=== PATIENT | female | born 1960 | race Caucasian/White ===

== ENCOUNTER → 2020-03-03 08:05 | Outpatient (CLI) | payer OTHER, SELFPAY ==
--- NOTE | 2020-03-03 | DI.MG.S_ITS ---
BILATERAL DIGITAL SCREENING MAMMOGRAM 3D/2D WITH CAD: 03/03/2020 CLINICAL: Routine screening. Comparison is made to exams dated: 08/19/2016 mammogram, 08/20/2017 mammogram, and 08/20/2018 mammogram - [facility]. The tissue of both breasts is predominantly fatty. Current study was also evaluated with a Computer Aided Detection (CAD) system. No significant masses, calcifications, or other findings are seen in either breast. There has been no significant interval change. IMPRESSION: NEGATIVE There is no mammographic evidence of malignancy. A 1 year screening mammogram is recommended. This exam was interpreted at Station ID: [id number]. NOTE: For mammograms, a report in lay terms will be sent to the patient. Approximately 15% of breast malignancies will not be visualized mammographically. In the management of a palpable breast mass, a negative mammogram must not discourage biopsy of a clinically suspicious lesion. Electronically Signed By: Tang john/trisha:03/05/2020 07:54:50 letter sent: Normal Exam ACR BI-RADS Category 1: Negative 3341F
== END ==
PROVIDERS: Referring Provider Registered Nurse Diabetes Educator; Visit Provider Registered Nurse Diabetes Educator
DX: Z12.31 Encounter for screening mammogram for malignant neoplasm of breast (principal)
CPT/HCPCS: 77063; 77067

== ENCOUNTER → 2021-03-16 08:55 | Outpatient (CLI) | payer OTHER, SELFPAY ==
--- NOTE | 2021-03-16 | DI.MG.S_ITS ---
BILATERAL DIGITAL SCREENING MAMMOGRAM 3D/2D WITH CAD: 03/16/2021 CLINICAL: Routine screening. Comparison is made to exams dated: 03/03/2020 mammogram - [facility], 08/20/2018 mammogram, and 08/20/2017 mammogram - [facility]. The tissue of both breasts is predominantly fatty. Current study was also evaluated with a Computer Aided Detection (CAD) system. No significant masses, calcifications, or other findings are seen in either breast. There has been no significant interval change. IMPRESSION: NEGATIVE There is no mammographic evidence of malignancy. A 1 year screening mammogram is recommended. This exam was interpreted at Station ID: [id number]. NOTE: For mammograms, a report in lay terms will be sent to the patient. Approximately 15% of breast malignancies will not be visualized mammographically. In the management of a palpable breast mass, a negative mammogram must not discourage biopsy of a clinically suspicious lesion. Electronically Signed By: Abdiaziz galvan/trisha:03/18/2021 08:21:32 letter sent: Normal Exam ACR BI-RADS Category 1: Negative 3341F
== END ==
PROVIDERS: Referring Provider Student in an Organized Health Care Education/Training Program; Visit Provider Student in an Organized Health Care Education/Training Program
DX: Z12.31 Encounter for screening mammogram for malignant neoplasm of breast (principal)
CPT/HCPCS: 77063; 77067

== ENCOUNTER 2024-05-30 12:14 | Emergency (ER) | payer OTHER, SELFPAY ==
[2024-05-30] VITALS (20 sets, daily range): BP systolic 116–158; BP diastolic 57–69; PULSE 59–84; RESP 12–25; TEMP 36.8–37.1; O2SAT 91–100; BMI 51.2
--- NOTE | 2024-05-30 12:56 | EKG_ITS ---
[facility] [address] [place] [address] Test Date: 2024-05-30 Pat Name: Yanni Taylor Department: [facility] Room: Gender: Female Electrical Engineering Director: MALLORIE : 1960 Requested By: Order Number: [id number] Reading MD: Eric Ocampo MD Measurements Intervals Counce Rate: 71 P: 48 SD: 184 QRS: -15 QRSD: 90 T: 15 QT: 418 QTc: 454 Interpretive Statements Normal sinus rhythm Minimal voltage criteria for LVH, may be normal variant ( R in aVL ) Electronically Signed On 05-30-2024 16:46:45 PST by Eric Ocampo MD
[2024-05-30 13:30] LABS: Add Manual Diff / Slide Review NO; Basophils Absolute Auto 100 /uL (0-100); Basophils Percent Auto 0.6 % (0-2); Eosinophils Absolute Auto 200 /uL (0-450); Eosinophils Percent Auto 1.7 % (2-4); Hematocrit 42.6 % (36-46); Lymphocytes Absolute Auto 1300 /uL (1100-4500); Lymphocytes Percent Auto 10.9 % (25-40); Mean Corpuscular HGB Conc 32.9 % (30-36); Mean Corpuscular Hemoglobin 27.7 PG (26-34); Mean Corpuscular Volume 84.4 fL (80-100); Monocytes Absolute Auto 800 /uL (0-900); Monocytes Percent Auto 6.7 % (3-14); Neutrophils Absolute Auto 9700 /uL (1500-7000); Neutrophils Percent Auto 80.1 % (50-75); Platelet Count 323 X10^3/uL (150-400); Red Blood Cell Count 5.04 X10^6/uL (4.0-5.2); Red Cell Distribution Width 13.5 % (11.6-14.8); White Blood Cell Count 12.1 X10^3/uL (4.5-11.0)
[2024-05-30 13:44] LABS: Alanine Aminotransferase 21 IU/L (<35); Albumin 4.6 g/dL (3.5-5.0); Albumin Globulin Ratio 1.1 (1.0-2.8); Alkaline Phosphatase 88 U/L (38-126); Aspartate Aminotransferase 62 IU/L (14-36); BUN Creatinine Ratio 16.9 (6-22); Bilirubin Total 1.7 mg/dL (0.2-1.3); Blood Urea Nitrogen 10 mg/dL (7-17); Calcium 9.2 mg/dL (8.4-10.2); Carbon Dioxide 28 mmol/L (22-32); Chloride 101 mmol/L (98-107); Estimated Glomerular Filt Rate > 60 mL/min (>60); Globulin 4.2 g/dL (1.7-4.1); Glucose 106 mg/dL (80-110); HEMOLYSIS 216 (0-50); Lipase 35 U/L (23-300); Potassium 4.6 mmol/L (3.4-5.1); Sodium 137 mmol/L (137-145); Total Protein 8.8 g/dL (6.3-8.2)
--- NOTE | 2024-05-30 15:56 | ED.ABDPAIN ---
HPI - Abdominal Pain <Nila Tellez DO - Last Filed: 06/02/24 18:38> General Chief Complaint: Abdominal Pain Stated Complaint: abd px, sent by [facility] Time Seen by Provider: 05/30/24 15:56 Source: patient Mode of arrival: Ambulatory History of Present Illness HPI narrative: Patient is a 64-year-old female history of gastric bypass and hypothyroid presenting today with right upper quadrant pain. Reports it has been ongoing for the last 4 days. It radiates into her breasts and in her shoulder. She has not able to sleep due to pain. Some nausea no significant vomiting no fever. She really has a decrease in appetite has a headache seemed eat since yesterday afternoon. She was able to urinate. Related Data Allergies Allergy/AdvReac Type Severity Reaction Status Date / Time No Known Drug Allergies Allergy Verified 05/30/24 12:47 Patient History <Nila Tellez DO - Last Filed: 06/02/24 18:38> Social History Smoking Status: Former smoker Smoking Status: Former smoker Exam <Nila Tellez DO - Last Filed: 06/02/24 18:38> Initial Vital Signs Initial Vital Signs: Vital Signs Temperature 98.7 F 05/30/24 12:47 Pulse Rate 59 L 05/30/24 12:47 Respiratory Rate 18 05/30/24 12:47 Blood Pressure 158/69 H 05/30/24 12:47 Pulse Oximetry 99 05/30/24 12:47 Oxygen Delivery Method Room Air 05/30/24 12:47 GENERAL: Alert pleasant 64-year-old female and in no acute distress. HEENT: Head atraumatic,EOMI, pupils reactive, face symmetric, moist mucous membranes CARDIOVASCULAR: Regular rate and rhythm without murmurs, rubs or gallops. RESPIRATORY: Breath sounds equal bilaterally, no wheezes rales or rhonchi. ABDOMEN: Soft, tender right upper quadrant no guarding no rebound rest of abdomen within normal limits EXTREMITIES: Normal range of motion, no clubbing or edema. Neurovascularly intact NEUROLOGICAL: Alert and oriented x4.Normal gait and speech. SKIN: Warm, dry, no laceration, no petechiae, no rashes or lesions. <Desean Aguilera DO - Last Filed: 05/31/24 02:05> Initial Vital Signs Initial Vital Signs: Vital Signs Temperature 98.7 F 05/30/24 12:47 Pulse Rate 59 L 05/30/24 12:47 Respiratory Rate 18 05/30/24 12:47 Blood Pressure 158/69 H 05/30/24 12:47 Pulse Oximetry 99 05/30/24 12:47 Oxygen Delivery Method Room Air 05/30/24 12:47 Course <Nila Tellez DO - Last Filed: 06/02/24 18:38> Orders Ordered: Discontinued Medications Piperacillin Sod/Tazobactam (Sod 4.5 gm/ Sodium Chloride) 100 mls @ 200 mls/hr IV NOW ONE Stop: 05/30/24 18:03 Last Infusion: 05/30/24 20:03 Dose: Infused Documented By: Admin: 05/30/24 18:50 Dose: 200 mls/hr Documented By: Piperacillin Sod/Tazobactam (Sod 3.375 gm/ Sodium Chloride) 100 mls @ 25 mls/hr IV Q8H [facility] Ketorolac Tromethamine (Ketorolac 30 Mg/Ml Vial) 15 mg IV NOW ONE Stop: 05/30/24 18:07 Last Admin: 05/30/24 18:14 Dose: 15 mg Documented By: Ketorolac Tromethamine (Ketorolac 30 Mg/Ml Vial) 15 mg IV NOW ONE Stop: 05/31/24 02:21 Last Admin: 05/31/24 02:25 Dose: 15 mg Documented By: ANGELA Ondansetron HCl (Ondansetron 4 Mg/2 Ml Inj) 4 mg IV NOW PRN PRN Reason: Nausea And Vomiting Ondansetron HCl (Ondansetron 4 Mg Odt) 4 mg PO NOW PRN PRN Reason: Nausea And Vomiting Vital Signs Vital signs: Vital Signs - 8 hr 05/30/24 18:54 05/30/24 18:55 05/30/24 18:55 Temperature Pulse Rate 82 82 Respiratory Rate Blood Pressure 131/63 Pulse Oximetry 95 96 Oxygen Delivery Method 05/30/24 19:00 05/30/24 19:00 05/30/24 19:30 Temperature Pulse Rate 79 78 Respiratory Rate 18 Blood Pressure 126/57 L 116/57 L Pulse Oximetry 96 96 Oxygen Delivery Method Room Air 05/30/24 19:30 05/30/24 20:00 05/30/24 20:00 Temperature Pulse Rate 84 79 Respiratory Rate Blood Pressure 126/59 L Pulse Oximetry 98 97 Oxygen Delivery Method 05/30/24 23:28 05/30/24 23:28 05/31/24 01:57 Temperature 98.2 F Pulse Rate 75 71 Respiratory Rate 20 Blood Pressure 132/60 133/63 Pulse Oximetry 97 98 Oxygen Delivery Method Room Air <Desean Aguilera DO - Last Filed: 05/31/24 02:05> Orders Ordered: Discontinued Medications Piperacillin Sod/Tazobactam (Sod 4.5 gm/ Sodium Chloride) 100 mls @ 200 mls/hr IV NOW ONE Stop: 05/30/24 18:03 Last Infusion: 05/30/24 20:03 Dose: Infused Documented By: Admin: 05/30/24 18:50 Dose: 200 mls/hr Documented By: Piperacillin Sod/Tazobactam (Sod 3.375 gm/ Sodium Chloride) 100 mls @ 25 mls/hr IV Q8H [facility] Ketorolac Tromethamine (Ketorolac 30 Mg/Ml Vial) 15 mg IV NOW ONE Stop: 05/30/24 18:07 Last Admin: 05/30/24 18:14 Dose: 15 mg Documented By: Ketorolac Tromethamine (Ketorolac 30 Mg/Ml Vial) 15 mg IV NOW ONE Stop: 05/31/24 02:21 Last Admin: 05/31/24 02:25 Dose: 15 mg Documented By: ANGELA Ondansetron HCl (Ondansetron 4 Mg/2 Ml Inj) 4 mg IV NOW PRN PRN Reason: Nausea And Vomiting Ondansetron HCl (Ondansetron 4 Mg Odt) 4 mg PO NOW PRN PRN Reason: Nausea And Vomiting Vital Signs Vital signs: Vital Signs - 8 hr 05/30/24 18:54 05/30/24 18:55 05/30/24 18:55 Temperature Pulse Rate 82 82 Respiratory Rate Blood Pressure 131/63 Pulse Oximetry 95 96 Oxygen Delivery Method 05/30/24 19:00 05/30/24 19:00 05/30/24 19:30 Temperature Pulse Rate 79 78 Respiratory Rate 18 Blood Pressure 126/57 L 116/57 L Pulse Oximetry 96 96 Oxygen Delivery Method Room Air 05/30/24 19:30 05/30/24 20:00 05/30/24 20:00 Temperature Pulse Rate 84 79 Respiratory Rate Blood Pressure 126/59 L Pulse Oximetry 98 97 Oxygen Delivery Method 05/30/24 23:28 05/30/24 23:28 05/31/24 01:57 Temperature 98.2 F Pulse Rate 75 71 Respiratory Rate 20 Blood Pressure 132/60 133/63 Pulse Oximetry 97 98 Oxygen Delivery Method Room Air MDM - Abdominal Pain <Nila Tellez, DO - Last Filed: 06/02/24 18:38> Lab Data 05/30/24 13:10 05/30/24 13:10 Labs: Lab Results 05/30/24 05/30/24 Range/Units 13:10 16:15 WBC 12.1 H (4.5-11.0) X10^3/uL RBC 5.04 (4.0-5.2) X10^6/uL Hgb 14.0 (12.0-16.0) g/dL Hct 42.6 (36-46) % MCV 84.4 (80-100) fL MCH 27.7 (26-34) PG MCHC 32.9 (30-36) % RDW 13.5 (11.6-14.8) % Plt Count 323 (150-400) X10^3/uL Neut % (Auto) 80.1 H (50-75) % Lymph % (Auto) 10.9 L (25-40) % Burke % (Auto) 6.7 (3-14) % Eos % (Auto) 1.7 L (2-4) % Baso % (Auto) 0.6 (0-2) % Neut # (Auto) 9700 H (1720-7463) /uL Lymph # (Auto) 1300 (1108-3549) /uL Burke # (Auto) 800 (0-900) /uL Eos # (Auto) 200 (0-450) /uL Baso # (Auto) 100 (0-100) /uL Sodium 137 (137-145) mmol/L Potassium 4.6 (3.4-5.1) mmol/L Chloride 101 (98-107) mmol/L Carbon Dioxide 28 (22-32) mmol/L BUN 10 (7-17) mg/dL Creatinine 0.59 (0.52-1.04) mg/dL Estimated GFR > 60 (>60) mL/min BUN/Creatinine Ratio 16.9 (6-22) Glucose 106 (80-110) mg/dL Calcium 9.2 (8.4-10.2) mg/dL Total Bilirubin 1.7 H (0.2-1.3) mg/dL AST 62 H (14-36) IU/L ALT 21 (<35) IU/L Alkaline Phosphatase 88 (38-126) U/L Total Protein 8.8 H (6.3-8.2) g/dL Albumin 4.6 (3.5-5.0) g/dL Globulin 4.2 H (1.7-4.1) g/dL Albumin/Globulin Ratio 1.1 (1.0-2.8) Lipase 35 (23-300) U/L Urine RBC 1-5/hpf (0-5/HPF) Urine WBC 5-10/hpf H (0-5/HPF) Ur Squamous Epith Cells 5-10 /hpf H (0-5/HPF) Urine Bacteria Moderate (10-30) H (None) Vol Urine Centrifuged 10ml (spun) Point of care testing: Urine Dip Bedside Urine Glucose Negative Bedside Urine Bilirubin - Negative Bedside Urine Ketone +/- 5 Urine Specific [place] 1.025 Bedside Urine Occult Blood +/- Bedside Urine pH 6.0 Bedside Urine Protein +/- 15 Bedside Urine Urobilinogen +/- 1mg Bedside Urine Nitrite - Negative Bedside Urine Leukocytes +/- [address] scan - abdomen/pelvis: Radiologist's Impression: PROCEDURE: CT ABDOMEN PELVIS W CON INDICATIONS: pain hx gastric bypass TECHNIQUE: After the administration of intravenous contrast, axial sections acquired from the lung bases to the pubic symphysis. Coronal and sagittal reformats were performed. For radiation dose reduction, the following was used: automated exposure control, adjustment of mA and/or kV according to patient size. COMPARISON: None. FINDINGS: Image quality: Diagnostic. Lower Chest: No significant findings. ABDOMEN: Liver: No solid mass. Gallbladder: Large minimally calcified gallstone. There also numerous tiny minimally calcified gallstones. Gallbladder distension with gallbladder wall thickening and inflammation in the adjacent fat. Findings are highly suspicious for acute cholecystitis. Biliary ducts: Extrahepatic duct is dilated. Cannot exclude a distal common duct stone. There is mild dilatation of the central intrahepatic ducts. Pancreas: No ductal dilation. Spleen: Size is within normal limits. Adrenal Glands: No adrenal nodules. Kidneys and Ureters: No hydronephrosis. No solid mass. No complex renal cystic lesion which requires follow up. Stomach and Bowel: Remote gastric bypass. Normal colonic caliber, without significant wall thickening. Diverticulosis without evidence of acute diverticulitis. Peritoneum: No abnormal intraperitoneal fluid. No free air. Ventral Wall: No significant ventral hernia. Abdominal Nodes: No retroperitoneal or mesenteric adenopathy by size criteria. Vessels: Aorta and inferior vena cava are normal in size. PELVIS: Pelvic Organs: Unremarkable. Bladder: No bladder wall thickening, accounting for underdistention. Pelvic Nodes: No enlarged lymph nodes. Miscellaneous: No inguinal hernias are seen. Bones: No aggressive osseous abnormality. IMPRESSION: Findings are highly suspicious for acute cholecystitis. Additionally, consider distal common duct stone. MRCP with and without contrast may be helpful. Additionally, right upper quadrant ultrasound has been ordered. Remote gastric bypass. Dictated by: Dean He M.D. on 05/30/2024 at 17:08 US - abdomen: Radiologist's Impression: PROCEDURE: US ABDOMEN LIMITED INDICATIONS: ruq pain TECHNIQUE: Real-time focused scanning was performed of the abdomen, with image documentation. COMPARISON: None. FINDINGS: The pancreas was not well seen due to bowel gas. The liver was suboptimally evaluated due to positioning and suboptimal acoustic windows. The visible portion appears grossly normal. There is a stone in the gallbladder measuring about 3.1 cm. Gallbladder wall measures up to 4.7 mm in thickness. There is pericholecystic fluid per the house father. No Frazier sign was reported. The common duct is dilated measuring 1.1 cm in diameter. The visible portion of the liver demonstrates intrahepatic biliary dilatation. IMPRESSION: Intra and extrahepatic biliary dilatation is nonspecific. Distal obstructing stone cannot be excluded. Correlate with LFTs. Cholelithiasis and gallbladder wall thickening without focal gallbladder tenderness. Findings are equivocal for acute cholecystitis. Consider nuclear medicine HIDA scan for further evaluation. Dictated by: Perla Winters M.D. on 05/30/2024 at 17:36 MRCP: Radiologist's Impression: PROCEDURE: MR ABDOMEN WO/W CON INDICATIONS: Choledocholithiasis TECHNIQUE: Coronal HASTE, axial 2D FLASH in- and [id number]; axial breath-hold T2 FSE with fat saturation from the hepatic dome to the iliac crests. Oblique coronal thin-slice and radial thick slab HASTE through the biliary system. Dynamic axial VIBE during administration of contrast. Post-contrast coronal VIBE or 2D FLASH with fat saturation from the hepatic dome to the iliac crests. Optional diffusion weighted imaging and ADC may be performed. COMPARISON: [facility], CT, CT ABDOMEN PELVIS W CON, 05/30/2024, 16:27. [facility], US, US ABDOMEN LIMITED, 05/30/2024, 16:46. FINDINGS: Image quality: Motion degraded Lower chest: No basal effusions. Possible small hiatal hernia. Liver: Probable mild hepatic steatosis. Gallbladder and biliary system: Cholelithiasis. The largest gallstone measures up to 4.8 cm. There are many smaller gallstones. Suspected stones are seen in the cystic duct. Overall gallbladder distention and pericholecystic edema are present. CBD is distended measuring up to 1.1 cm. Suspected small distal stones are seen. Pancreas: No ductal dilation Spleen: Nonenlarged Adrenals: No discrete nodules Kidneys: There are small renal cysts. No hydronephrosis. No solid renal mass Vessels and lymph nodes: No pathologic lymphadenopathy by size criteria. No abdominal aortic aneurysm. No portal venous thrombus Bowel and peritoneum: No small bowel obstruction. No pathologic ascites. Body wall: Unremarkable Bones: No focal suspicious osseous abnormality. IMPRESSION: Distended gallbladder with cholelithiasis. Stones are seen in the cystic duct. Pericholecystic edema. These findings are suspicious for cholecystitis, which could be confirmed with HIDA scan if needed. Suspect small choledocholithiasis and dilation of the CBD. Mild hepatic steatosis. Dictated by: Sahil Doshi M.D. on 05/30/2024 at 19:32 Approved by: Sahil Doshi M.D. on 05/30/2024 at 19:38 ECG Data Attestation: I personally reviewed and interpreted this ECG as follows: Prior ECG tracings: not available for review Interpretation: Sinus rhythm rate 71 NE interval 184 QRS 90 QTC 454 MDM Narrative Medical decision making narrative: MDM CC: With the pain Complicating co-morbidities: Gastric bypass Medical records reviewed: [ ] Differential considered: [ ] Exam documented above, pertinent findings include: She is tender in the right upper quadrant of abdomen is soft Lab Test results independently reviewed as above. Pertinent findings: WBC 12.1 hemoglobin 14.0 hematocrit 42.6 platelets 323 Sodium 137 potassium 4.6 chloride 101 carbon dioxide 20 BUN 10 creatinine 0.5 Bilirubin 1.7 AST 62 ALT 21 Lipase 35 Independently reviewed EKG as above sinus rhythm no ischemia Imaging studies independently reviewed: CT is concerning for acute cholecystitis consider common duct stone Ultrasound shows in tried extrahepatic biliary dilation distal obstructing stone kit a be excluded. Cholelithiasis and gallbladder wall thickening without focal gallbladder tenderness equivocal for acute cholecystitis MRCP does confirm acute cholecystitis with cholelithiasis. Some still there seated this cystic duct she was pericholecystic edema. Suspect small choledocholithiasis a dilation of CBC Consultations: Dr. Patton, on-call surgery updated on patient's symptoms test results recommends MRCP. She has not an ERCP candidate secondary to gastric bypass 1944 Dr. Patton, updated on MRCP results she was concerning for possible small choledocholithiasis. At this time he recommends transfer Treatments: Zosyn Toradol Re-evaluations: Patient is feeling better after Toradol Discussion: 64-year-old female presenting today with right upper quadrant pain. Concern for cholecystitis. CT and ultrasound both confirm cholecystitis. She is mild elevation of bilirubin 1.7 in mild elevation of AST is 62. Surgery initially consulted recommend MRCP. MRCP concerning for choledocholithiasis needs to be transferred. Has not have any ERCP based previous gastric bypass Signed out to Dr. Aguilera <Desean Aguilera, DO - Last Filed: 05/31/24 02:05> Lab Data Attestation: I reviewed the patient's lab results. Labs: Lab Results 05/30/24 05/30/24 Range/Units 13:10 16:15 WBC 12.1 H (4.5-11.0) X10^3/uL RBC 5.04 (4.0-5.2) X10^6/uL Hgb 14.0 (12.0-16.0) g/dL Hct 42.6 (36-46) % MCV 84.4 (80-100) fL MCH 27.7 (26-34) PG MCHC 32.9 (30-36) % RDW 13.5 (11.6-14.8) % Plt Count 323 (150-400) X10^3/uL Neut % (Auto) 80.1 H (50-75) % Lymph % (Auto) 10.9 L (25-40) % Burke % (Auto) 6.7 (3-14) % Eos % (Auto) 1.7 L (2-4) % Baso % (Auto) 0.6 (0-2) % Neut # (Auto) 9700 H (3410-0717) /uL Lymph # (Auto) 1300 (4428-7594) /uL Burke # (Auto) 800 (0-900) /uL Eos # (Auto) 200 (0-450) /uL Baso # (Auto) 100 (0-100) /uL Sodium 137 (137-145) mmol/L Potassium 4.6 (3.4-5.1) mmol/L Chloride 101 (98-107) mmol/L Carbon Dioxide 28 (22-32) mmol/L BUN 10 (7-17) mg/dL Creatinine 0.59 (0.52-1.04) mg/dL Estimated GFR > 60 (>60) mL/min BUN/Creatinine Ratio 16.9 (6-22) Glucose 106 (80-110) mg/dL Calcium 9.2 (8.4-10.2) mg/dL Total Bilirubin 1.7 H (0.2-1.3) mg/dL AST 62 H (14-36) IU/L ALT 21 (<35) IU/L Alkaline Phosphatase 88 (38-126) U/L Total Protein 8.8 H (6.3-8.2) g/dL Albumin 4.6 (3.5-5.0) g/dL Globulin 4.2 H (1.7-4.1) g/dL Albumin/Globulin Ratio 1.1 (1.0-2.8) Lipase 35 (23-300) U/L Urine RBC 1-5/hpf (0-5/HPF) Urine WBC 5-10/hpf H (0-5/HPF) Ur Squamous Epith Cells 5-10 /hpf H (0-5/HPF) Urine Bacteria Moderate (10-30) H (None) Vol Urine Centrifuged 10ml (spun) Point of care testing: Urine Dip Bedside Urine Glucose Negative Bedside Urine Bilirubin - Negative Bedside Urine Ketone +/- 5 Urine Specific [place] 1.025 Bedside Urine Occult Blood +/- Bedside Urine pH 6.0 Bedside Urine Protein +/- 15 Bedside Urine Urobilinogen +/- 1mg Bedside Urine Nitrite - Negative Bedside Urine Leukocytes +/- 15 Esterase MDM Narrative Medical decision making narrative: [place] CC: With the pain Complicating co-morbidities: Gastric bypass Medical records reviewed: [ ] Differential considered: [ ] Exam documented above, pertinent findings include: She is tender in the right upper quadrant of abdomen is soft Lab Test results independently reviewed as above. Pertinent findings: WBC 12.1 hemoglobin 14.0 hematocrit 42.6 platelets 323 Sodium 137 potassium 4.6 chloride 101 carbon dioxide 20 BUN 10 creatinine 0.5 Bilirubin 1.7 AST 62 ALT 21 Lipase 35 Independently reviewed EKG as above sinus rhythm no ischemia Imaging studies independently reviewed: CT is concerning for acute cholecystitis consider common duct stone Ultrasound shows in tried extrahepatic biliary dilation distal obstructing stone kit a be excluded. Cholelithiasis and gallbladder wall thickening without focal gallbladder tenderness equivocal for acute cholecystitis MRCP does confirm acute cholecystitis with cholelithiasis. Some still there seated this cystic duct she was pericholecystic edema. Suspect small choledocholithiasis a dilation of CBC Consultations: Dr. Patton, on-call surgery updated on patient's symptoms test results recommends MRCP. She has not an ERCP candidate secondary to gastric bypass 1944 Dr. Patton, updated on MRCP results she was concerning for possible small choledocholithiasis. At this time he recommends transfer Treatments: Zosyn Toradol Re-evaluations: Patient is feeling better after Toradol Discussion: 64-year-old female presenting today with right upper quadrant pain. Concern for cholecystitis. CT and ultrasound both confirm cholecystitis. She is mild elevation of bilirubin 1.7 in mild elevation of AST is 62. Surgery initially consulted recommend MRCP. MRCP concerning for choledocholithiasis needs to be transferred. Has not have any ERCP based previous gastric bypass Signed out to Dr. Ale Aguilera: Received turned over. Review patient's history and physical exam. Reviewed workup. Patient does have an acute cholecystitis. Has been receiving antibiotics. There is some question about a choledocholithiasis however no definitive gallstone seen on the MRCP. General surgery at [facility] recommends transfer to facility that has GI given her Teo-en-Y gastric bypass. I did discuss the case with Dr. Antonio with GI at [place] who stated that she most likely does not need a ERCP based on the MRCP results. I did discuss the case with Dr. Torres hospitalist on-call who accepts the patient for transfer. Patient was stable for transport. Discharge Plan Departure Patient Disposition: [facility] Clinical Impression: Acute cholecystitis Referrals: ProviderYair [Primary Care Provider] -
--- NOTE | 2024-05-30 16:23 | DI.CT.S_ITS ---
PROCEDURE: CT ABDOMEN PELVIS W CON INDICATIONS: pain hx gastric bypass TECHNIQUE: After the administration of intravenous contrast, axial sections acquired from the lung bases to the pubic symphysis. Coronal and sagittal reformats were performed. For radiation dose reduction, the following was used: automated exposure control, adjustment of mA and/or kV according to patient size. COMPARISON: None. FINDINGS: Image quality: Diagnostic. Lower Chest: No significant findings. ABDOMEN: Liver: No solid mass. Gallbladder: Large minimally calcified gallstone. There also numerous tiny minimally calcified gallstones. Gallbladder distension with gallbladder wall thickening and inflammation in the adjacent fat. Findings are highly suspicious for acute cholecystitis. Biliary ducts: Extrahepatic duct is dilated. Cannot exclude a distal common duct stone. There is mild dilatation of the central intrahepatic ducts. Pancreas: No ductal dilation. Spleen: Size is within normal limits. Adrenal Glands: No adrenal nodules. Kidneys and Ureters: No hydronephrosis. No solid mass. No complex renal cystic lesion which requires follow up. Stomach and Bowel: Remote gastric bypass. Normal colonic caliber, without significant wall thickening. Diverticulosis without evidence of acute diverticulitis. Peritoneum: No abnormal intraperitoneal fluid. No free air. Ventral Wall: No significant ventral hernia. Abdominal Nodes: No retroperitoneal or mesenteric adenopathy by size criteria. Vessels: Aorta and inferior vena cava are normal in size. PELVIS: Pelvic Organs: Unremarkable. Bladder: No bladder wall thickening, accounting for underdistention. Pelvic Nodes: No enlarged lymph nodes. Miscellaneous: No inguinal hernias are seen. Bones: No aggressive osseous abnormality. IMPRESSION: Findings are highly suspicious for acute cholecystitis. Additionally, consider distal common duct stone. MRCP with and without contrast may be helpful. Additionally, right upper quadrant ultrasound has been ordered. Remote gastric bypass. Dictated by: Dean He M.D. on 05/30/2024 at 17:08 Approved by: Dean He M.D. on 05/30/2024 at 17:15
--- NOTE | 2024-05-30 16:23 | DI.US.S_ITS ---
PROCEDURE: US ABDOMEN LIMITED INDICATIONS: ruq pain TECHNIQUE: Real-time focused scanning was performed of the abdomen, with image documentation. COMPARISON: None. FINDINGS: The pancreas was not well seen due to bowel gas. The liver was suboptimally evaluated due to positioning and suboptimal acoustic windows. The visible portion appears grossly normal. There is a stone in the gallbladder measuring about 3.1 cm. Gallbladder wall measures up to 4.7 mm in thickness. There is pericholecystic fluid per the parimutuel ticket checker. No Frazier sign was reported. The common duct is dilated measuring 1.1 cm in diameter. The visible portion of the liver demonstrates intrahepatic biliary dilatation. IMPRESSION: Intra and extrahepatic biliary dilatation is nonspecific. Distal obstructing stone cannot be excluded. Correlate with LFTs. Cholelithiasis and gallbladder wall thickening without focal gallbladder tenderness. Findings are equivocal for acute cholecystitis. Consider nuclear medicine HIDA scan for further evaluation. Dictated by: Perla Winters M.D. on 05/30/2024 at 17:36 Approved by: Perla Winters M.D. on 05/30/2024 at 17:39
[2024-05-30 16:44] LABS: Bacteria Urine Moderate (10-30); RBC Urine 1-5/HPF (0-5/HPF); Squamous Epithelial Cell Urine 5-10 /HPF (0-5/HPF); Urine Volume 10mL (spun); WBC Urine 5-10/HPF (0-5/HPF)
--- NOTE | 2024-05-30 18:02 | DI.MRI.S_ITS ---
PROCEDURE: MR ABDOMEN WO/W CON INDICATIONS: Choledocholithiasis TECHNIQUE: Coronal HASTE, axial 2D FLASH in- and [id number]; axial breath-hold T2 FSE with fat saturation from the hepatic dome to the iliac crests. Oblique coronal thin-slice and radial thick slab HASTE through the biliary system. Dynamic axial VIBE during administration of contrast. Post-contrast coronal VIBE or 2D FLASH with fat saturation from the hepatic dome to the iliac crests. Optional diffusion weighted imaging and ADC may be performed. COMPARISON: [facility], CT, CT ABDOMEN PELVIS W CON, 05/30/2024, 16:27. [facility], US, US ABDOMEN LIMITED, 05/30/2024, 16:46. FINDINGS: Image quality: Motion degraded Lower chest: No basal effusions. Possible small hiatal hernia. Liver: Probable mild hepatic steatosis. Gallbladder and biliary system: Cholelithiasis. The largest gallstone measures up to 4.8 cm. There are many smaller gallstones. Suspected stones are seen in the cystic duct. Overall gallbladder distention and pericholecystic edema are present. CBD is distended measuring up to 1.1 cm. Suspected small distal stones are seen. Pancreas: No ductal dilation Spleen: Nonenlarged Adrenals: No discrete nodules Kidneys: There are small renal cysts. No hydronephrosis. No solid renal mass Vessels and lymph nodes: No pathologic lymphadenopathy by size criteria. No abdominal aortic aneurysm. No portal venous thrombus Bowel and peritoneum: No small bowel obstruction. No pathologic ascites. Body wall: Unremarkable Bones: No focal suspicious osseous abnormality. IMPRESSION: Distended gallbladder with cholelithiasis. Stones are seen in the cystic duct. Pericholecystic edema. These findings are suspicious for cholecystitis, which could be confirmed with HIDA scan if needed. Suspect small choledocholithiasis and dilation of the CBD. Mild hepatic steatosis. Dictated by: Sahil Doshi M.D. on 05/30/2024 at 19:32 Approved by: Sahil Doshi M.D. on 05/30/2024 at 19:38
[2024-05-30] MEDS: KETOROLAC 30 MG/ML VIAL 15 MG IV (18:14)
[2024-05-30] MEDS: PIPERACILLIN/TAZO 4.5 GM in SODIUM CHLORIDE 0.9% 100 ML IV (18:50)
[2024-05-31 01:57] VITALS: BP 133/63; PULSE 71; RESP 20; O2SAT 98
[2024-05-31] MEDS: KETOROLAC 30 MG/ML VIAL 15 MG IV (02:25)
--- NOTE | 2024-05-31 02:29 | PC.NURSE ---
Report given/care transferred to [facility] transport team. Pt medicated for pain with toradol for the ride.
== END 2024-05-31 02:30 | disposition short-term general hospital (02) ==
PROVIDERS: Emergency Provider Emergency Medicine
DX: K81.0 Acute cholecystitis (principal); R51.9 Headache, unspecified; R11.0 Nausea; Z98.84 Bariatric surgery status; R10.11 Right upper quadrant pain
CPT/HCPCS: 36415; 74177; 74183; 76705; 80053; 81003; 81015; 83690; 85025; 87086; 93005; 93010; 96365; 96375; 96376; 99284; A9579; J1885; J2543; Q9967